=== PATIENT | female | born 1995 | race African-American/Black ===

== ENCOUNTER 2021-05-07 14:14 | Emergency (ER) | payer OTHER ==
[2021-05-07 15:10] VITALS: BP 118/77; PULSE 78; TEMP 98.8; BMI 20.7
[2021-05-07 17:44] LABS: PH,URINE 5.5 (5.0-8.0); URINE APPEARANCE CLEAR; URINE BILIRUBIN NEGATIVE (NEGATIVE); URINE COLOR YELLOW; URINE GLUCOSE (UA) NEGATIVE (NEGATIVE); URINE KETONE TRACE (NEGATIVE); URINE LEUK ESTERASE NEGATIVE (NEGATIVE); URINE NITRITE NEGATIVE (NEGATIVE); URINE PROTEIN TRACE (NEGATIVE)
[2021-05-07 18:39] LABS: SYPHILIS W/ RPR CONF NON-REACTIVE (NONREACTIVE)
[2021-05-07 19:09] LABS: HIV INTERPRETATION NEGATIVE (NEGATIVE)
== END 2021-05-07 16:50 | disposition home or self-care (01) ==
LOC: JERFT 14:14
DX: Z11.3 Encounter for screening for infections with a predominantly sexual mode of transmission (principal)
CPT/HCPCS: 36415; 81003; 86780; 86803; 87086; 87340; 87389; 87491; 87517; 87591; 87661; 99283-25